=== PATIENT | male | born 1945 | race Caucasian/White ===

== ENCOUNTER → 2017-09-05 11:42 | Outpatient (CLI) | payer MEDICARE, SELFPAY ==
--- NOTE | 2017-09-05 | DI.CT.S_ITS ---
PROCEDURE: CT ANGIO CHEST INDICATIONS: PAROXYSMAL ATRIAL FIBRILLATION TECHNIQUE: After the administration of intravenous contrast, 3 mm thick sections acquired from the pulmonary apices to the posterior costophrenic angles. 3-dimensional maximum intensity projection (MIP) coronal reformats were then acquired parallel to the pulmonary veins. For radiation dose reduction, the following was used: automated exposure control, adjustment of mA and/or kV according to patient size. COMPARISON: [facility], CT, PE STUDY (CTA CHEST), 04/20/2015, 17:26. [facility], CT, CHEST/ABD/PEL WITH CONTRAST, 05/02/2015, 12:05. FINDINGS: Image quality: Excellent. Pulmonary veins: 4 pulmonary veins are identified however with very early branching of the left superior pulmonary vein (see image 35 series 6) versus left supernumerary pulmonary vein * Right superior pulmonary vein: 1.7 cm diameter, 1.2 cm from ostium to 1st order branch. * Right inferior pulmonary vein: 1.4 cm diameter, 1.0 cm from ostium to 1st order branch. * Left superior pulmonary vein: 1.8 cm diameter, 0.1 cm from ostium to 1st order branch. * Left inferior pulmonary vein: 1.4 cm diameter, 1.1 cm from ostium to 1st order branch. Lungs and pleura: Lungs are clear. No pleural effusions or pneumothorax. Central and peripheral airways are patent. Mediastinum: Heart size is normal, without pericardial effusion. No mediastinal or hilar adenopathy. Thoracic aorta and pulmonary arteries are normal in caliber and enhancement. Esophagus is normal in caliber, without hiatal hernia. Bones and chest wall: Bilateral shoulder degeneration with multiple loose bodies seen on the left. Abdomen: Hypodense hepatic lesions presumably small cysts although these are technically too small. 3 cm water attenuation presumed hepatic cysts as seen on image 140 series 4 involving the right lobe, with no interval change Sclerotic appearance of the T11 vertebral body in keeping with osseous metastatic disease. The degree of sclerosis is progressed since the prior CT dated 04/22/15. T1 sclerotic lesion also noted, as well as other sclerotic foci throughout the thoracic spine IMPRESSION: Pulmonary vein mapping as above. Widespread osseous metastases as before, with mild progressive interval sclerosis. Dictated by: Martin Padgett M.D. on 09/05/2017 at 14:59 Approved by: Martin Padgett M.D. on 09/05/2017 at 15:23
== END ==
PROVIDERS: Family Provider Family Medicine; PCP Family Medicine; Visit Provider Internal Medicine Cardiovascular Disease
DX: I48.0 Paroxysmal atrial fibrillation (principal); C79.51 Secondary malignant neoplasm of bone
CPT/HCPCS: 71275; Q9967

== ENCOUNTER → 2017-10-03 12:26 | Outpatient (CLI) | payer MEDICARE, SELFPAY ==
[2017-10-03 13:18] LABS: Add Manual Diff / Slide Review NO; Basophils Percent Auto 0.6 % (0-2); Eosinophils Percent Auto 1.4 % (2-4); Hematocrit 41.9 % (41-53); Hemoglobin 14.3 g/dL (13.5-17.5); Lymphocytes Percent Auto 10.7 % (25-40); Mean Corpuscular HGB Conc 34.1 % (30-36); Mean Corpuscular Hemoglobin 34.1 PG (26-34); Mean Corpuscular Volume 99.9 fL (80-100); Monocytes Percent Auto 5.5 % (3-14); Neutrophils Absolute Auto 5300 /uL (3000-5900); Neutrophils Percent Auto 81.8 % (50-75); Platelet Count 176 X10^3/uL (150-400); Red Cell Distribution Width 14.3 % (11.6-14.8); White Blood Cell Count 6.4 X10^3/uL (4.5-11.0)
[2017-10-03 13:59] LABS: Alanine Aminotransferase 23 IU/L (21-72); Albumin 4.2 g/dL (3.5-5.0); Albumin Globulin Ratio 1.4 (1.0-2.8); Alkaline Phosphatase 86 U/L (38-126); Aspartate Aminotransferase 20 IU/L (17-59); BUN Creatinine Ratio 28.6 (6-22); Bilirubin Total 1.3 mg/dL (0.2-1.3); Blood Urea Nitrogen 20 mg/dL (9-20); Calcium 9.4 mg/dL (8.4-10.2); Carbon Dioxide 30 mmol/L (22-32); Chloride 101 mmol/L (98-107); Estimated Glomerular Filt Rate > 60.0 mL/min (>60); Globulin 2.9 g/dL (1.7-4.1); Glucose 130 mg/dL (80-110); HEMOLYSIS 16 (0-50); Potassium 4.6 mmol/L (3.4-5.1); Sodium 143 mmol/L (137-145); Total Protein 7.1 g/dL (6.3-8.2)
[2017-10-03 14:29] LABS: Prostate Specific Antigen 0.808 ng/mL (0.10-4.00)
== END ==
PROVIDERS: Family Provider Family Medicine; PCP Family Medicine; Visit Provider Internal Medicine Hematology & Oncology
DX: C79.51 Secondary malignant neoplasm of bone (principal); C61 Malignant neoplasm of prostate
CPT/HCPCS: 36415; 80053; 84153; 85025

== ENCOUNTER → 2017-12-10 10:33 | Outpatient (CLI) | payer MEDICARE, SELFPAY | PROVIDERS: Family Provider Family Medicine; PCP Family Medicine; Visit Provider Nurse Practitioner Gerontology | DX: C61 Malignant neoplasm of prostate (principal); C79.51 Secondary malignant neoplasm of bone | CPT/HCPCS: 36415; 84153 ==

== ENCOUNTER → 2018-01-01 09:41 | Outpatient (CLI) | payer MEDICARE, SELFPAY ==
--- NOTE | 2018-01-01 09:42 | DI.NM.S_ITS ---
PROCEDURE: [place] BONE SCAN WHOLE BODY RADIOPHARMACEUTICAL: 21.3 mCi Tc-99m MDP IV. INDICATIONS: PROSTATE CANCER TECHNIQUE: Delayed whole-body scintigrams were obtained approximately 3-4 hours after intravenous injection of radiotracer. Anterior and posterior views were acquired from vertex to feet. COMPARISON: [place], [place], BONE SCAN WHOLE BODY, 07/11/2017, 13:12. [place], BONE SCAN WHOLE BODY, 04/26/2016, 11:26. [place], BONE SCAN WHOLE BODY, 05/02/2015, 11:41. FINDINGS: With reference to prior nuclear medicine bone scanning 05/02/15 and 04/26/16 and 07/11/17 there has been significant interval increased osseous metastatic disease involving axial and appendicular skeleton. Extensive cervical spine isotope deposition best seen anteriorly is present and also isotope uptake focally at the coracoid process area of the right shoulder is noted. Right-sided sternal isotope uptake is prominent near the sternal notch, and bilateral rib uptake has appreciably increased best seen on the posterior projection. Moderate to moderately severe thoracic and lesser degree of lumbosacral spine isotope uptake is present, and the left sacroiliac joint region shows prominent isotope deposition. Right iliac crest uptake is present, and a left proximal femoral uptake also can be easily seen in areas previously normal. IMPRESSION: Significant interval worsening of multifocal osteoblastic metastatic disease related to prostate carcinoma, involving both the axial and appendicular skeleton. Isotope uptake and excretion through the urinary tract remains present but diminished. Dictated by: Georges Wooten M.D. on 01/01/2018 at 14:09 Approved by: Georges Wooten M.D. on 01/01/2018 at 14:13
== END ==
PROVIDERS: Family Provider Family Medicine; PCP Family Medicine; Visit Provider Nurse Practitioner Gerontology
DX: C61 Malignant neoplasm of prostate (principal); C79.51 Secondary malignant neoplasm of bone
CPT/HCPCS: 78306; A9503

== ENCOUNTER → 2018-01-03 14:22 | Outpatient (CLI) | payer MEDICARE, SELFPAY | PROVIDERS: PCP Family Medicine; Visit Provider Physician Assistant | DX: Z92.29 Personal history of other drug therapy (principal) | CPT/HCPCS: 36415; 80299 ==

== ENCOUNTER 2018-01-08 13:30 | Oncology outpatient (ONC) | payer MEDICARE, SELFPAY ==
--- NOTE | 2017-10-10 08:53 | P.PNONC_ITS ---
Assessment and Plan (1) Malignant neoplasm of prostate metastatic to bone Onset Date: 02/25/17 Status: None 10/10/17 11:03 Leoncio presents for routine 3 month evaluation today. Reassuringly on exam he has no clinical signs of disease progression. However, PSA is slightly elevated at 0.808. This is the highest it has been since Casodex was discontinued. Patient remains on daily Zytiga, prednisone along with every 6 month Lupron and denosumab. Plan is to repeat PSA in 6 weeks. If PSA continues to climb we will repeat a bone scan. If PSA is stable we will continue with every 3 month evaluation with the above therapy. He is also followed by urology whom he sees every 3 months, has next appt december 2017. PSA 6 week order has been entered in computer - Time Spent with Patient 35 mins PN -Subjective Interval history: Branden is a 72-year-old male being seen in the clinic October 10, 2017. He carries a diagnosis of castrate resistant metastatic prostate cancer on first- line therapy with Lupron abiraterone started 01/26/2018. Was on casodex until April 2015. Patient has had a biochemical and clinical treatment response to date with his PSAs dropping from baseline of 1.040 (02/13/2017) down to 0.46 (06/20/2017). Patient also reporting resolution of presenting bilateral pelvic and upper thigh discomfort. Bone scan on 07/11/2017 showing stability of metastatic lesions of the cervical spine thoracic and lumbar spine. However as compared to bone scan dated 04/26/2016 new metastatic lesions along the manubrium, ribs, upper thoracic, and left sacroiliac joints as well as proximal left femur are noted. Patient's last 6 month Lupron, denosumab was administered on June 2017 by his urologist. Leoncio has no new complaints on exam today. No new musculoskeletal pain. No change in bladder habits. No change in appetite. Weight is stable. No change with activity tolerance, no shortness of breath. No headaches. He reports he feels his prostate cancer is well controlled Patient underwent cardiac ablation 2 weeks ago at [facility] for recurrent a fib with RVR. TIMELINE 1. Node positive, stage IV prostate cancer at the time of diagnosis, [place] 9. He had gradual progression of PSA despite Lupron with current castrate testosterone level most recently 20.7. In addition he has a positive bone scan and CT indicating early metastatic bone disease. He was treated originally with a radical prostatectomy and lymph node dissection 05/04/[address] 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 The patient ultimately underwent prostate radiation therapy. The explanation for the delay is included in my previous note, but he underwent radiation therapy November through January 2011, the last radiation 01/25/2011. He had a PSA presurgery of 6.1; 0.68 on 06/05/2010; 0.15 on 07/14/2010. He was thought to be at high risk for recurrence, and the decision was made to do radiation at that time. PSA values (See LAB) have risen from undetectable in 05/2014 to .149 in 11/2014 qndd subsequently risen very gradually to the value of .734 in 12/2016. He has been on Lupron since 2011 with the additoin of casodex since May 04, 2015. . However, he was subsequently found to have bone metastases. A bone scan showed radiotracer activity at C3, also T9, T12, and L3, and these correspond to sclerotic lesions consistent with metastatic disease. These lesions were present to some extent previously. The bone scan was done on 05/02 with a comparison to 03/27/2010, so more than 4 years ago. Past Medical History atrial fibrillation and has had a cardioversion. He was referred from here to Dr. Nicholas. Past Surgical History prostatectomy hernia when young and as adult 61 bilateral knee replacement Results - Imaging Additional studies: Procedures Application of splint (04/18/10) Arthrocentesis (04/18/10) Closed [endoscopic] biopsy of large intestine (04/12/10) Injection of anesthetic into peripheral nerve for analgesia (08/11/10) Radical prostatectomy (05/04/10) Regional lymph node excision (05/04/10) Total knee replacement (08/11/10) Home Medications and Allergies Home Medications Medication Instructions Recorded Confirmed Type abiraterone [Zytiga] 1,000 mg PO QDAY #120 tab 01/21/17 09/30/17 Rx [FIBER CAPS] 1 cap PO TID #0 07/16/17 09/30/17 History furosemide [Lasix] 20 mg PO QDAY #0 07/16/17 09/30/17 History potassium chloride 10 meq PO QDAY #30 cap 07/23/17 09/30/17 Rx warfarin 2.5 mg tablet 2.5 mg PO SEE INSTRUCTIONS #120 tab 09/02/17 09/30/17 Rx prednisone 5 mg PO BID #60 tab 09/22/17 09/30/17 Rx denosumab 60 mg/mL subcutaneous 60 mg SUBCUT [id number] #1 ml 10/01/17 Rx syringe leuprolide (6 month) 45 mg 45 mg IM [id number] #1 each 10/01/17 Rx intramuscular syringe kit losartan 25 mg tablet See Label Instructions PO QDAY 10/01/17 09/30/17 History amiodarone 400 mg PO AMCC 10/10/17 History Allergies Allergy/AdvReac Type Severity Reaction Status Date / Time No Known Drug Allergies Allergy Unknown Unverified 09/30/17 11:25 [NO KNOWN DRUG ALLERGIES] Exam Narrative: well appearing - Constitutional positive no acute distress, positive average body habitus - Routine HEENT Exam Head: Present: normocephalic Eye: Present: EOMI, PERRL, normal accommodation, conjunctivae pink. Absent: conjunctival icterus, scleral injection ENT: Present: mucous membranes moist - Routine Neck Exam Present: supple. Absent: JVD, lymphadenopathy - Routine Chest/Breast/Axilla Exam Axillae: Absent: lymphadenopathy, mass, tenderness - Routine Respiratory Exam Present: Clear to auscultation bilaterally - Routine Cardiovascular Exam Present: RRR, S1, S2. Absent: murmur, gallop, rubs - Routine Abdominal Exam Present: soft, normoactive bowel sounds. Absent: tenderness, distended, organomegaly - Routine Extremities Exam Absent: edema, calf tenderness - Routine Skin Exam Present: intact, normal turgor. Absent: petechiae - Routine Neurological Exam Present: oriented X3
[2017-10-10 10:24] VITALS: BP 114/71; PULSE 73; RESP 18; O2SAT 97
--- NOTE | 2018-01-01 15:48 | PC.NURSE ---
Addendum entered by Annika Parikh R.N. 01/02/18 09:53: Pt reschd for 01/[address] Morgan per MD request. Pt called and advised. Original Note: Triage note: results from bone scan placed on my desk for review showing disease progression. Pt is not scheduled until Feb 03. Results placed in Dr Morgan's box with a note asking if he would be willing to see pt sooner. Awaiting response.
[2018-01-08 13:26] LABS: Add Manual Diff / Slide Review NO; Basophils Percent Auto 0.9 % (0-2); Eosinophils Percent Auto 0.6 % (2-4); Hematocrit 43.2 % (41-53); Hemoglobin 14.8 g/dL (13.5-17.5); Lymphocytes Percent Auto 12.1 % (25-40); Mean Corpuscular HGB Conc 34.1 % (30-36); Mean Corpuscular Hemoglobin 33.8 PG (26-34); Mean Corpuscular Volume 99.1 fL (80-100); Monocytes Percent Auto 6.6 % (3-14); Neutrophils Absolute Auto 6500 /uL (3000-5900); Neutrophils Percent Auto 79.8 % (50-75); Platelet Count 220 X10^3/uL (150-400); Red Blood Cell Count 4.36 X10^6/uL (4.5-5.9); Red Cell Distribution Width 14.2 % (11.6-14.8); White Blood Cell Count 8.1 X10^3/uL (4.5-11.0)
[2018-01-08 13:41] LABS: Alanine Aminotransferase 22 IU/L (21-72); Albumin 4.3 g/dL (3.5-5.0); Albumin Globulin Ratio 1.5 (1.0-2.8); Alkaline Phosphatase 116 U/L (38-126); Aspartate Aminotransferase 19 IU/L (17-59); BUN Creatinine Ratio 33.8 (6-22); Bilirubin Total 1.1 mg/dL (0.2-1.3); Blood Urea Nitrogen 27 mg/dL (9-20); Calcium 9.3 mg/dL (8.4-10.2); Carbon Dioxide 30 mmol/L (22-32); Chloride 101 mmol/L (98-107); Estimated Glomerular Filt Rate > 60.0 mL/min (>60); Globulin 2.9 g/dL (1.7-4.1); Glucose 115 mg/dL (80-110); HEMOLYSIS < 15 (0-50); Potassium 4.7 mmol/L (3.4-5.1); Sodium 142 mmol/L (137-145); Total Protein 7.2 g/dL (6.3-8.2)
[2018-01-08 13:42] VITALS: BP 106/80; PULSE 139; RESP 17; TEMP 36.4; O2SAT 100
[2018-01-08 14:14] LABS: Testosterone 19.6 ng/dL (71.8-623)
--- NOTE | 2018-01-08 15:44 | ONC.PN ---
PN -Subjective Interval history: Diagnosis: Metastatic prostate cancer. Previous treatment: 1. Prostatectomy in April 2010 with a [employer] 9 T3bN1 prostate cancer. 2. Radiation therapy to the prostate bed finishing in January 2011. 3. Lupron beginning in 2011. 4. Casodex plus Lupron from April 2015 until late in 2016. 5. Zytiga and prednisone beginning in April 2017. Interval history: The patient is a 72-year-old male being seen in the clinic October 10, 2017. He is seen today for follow-up of prostate cancer. He has been on Zytiga and prednisone. He has also been getting Lupron and Xgeva from his urologist. He has been tolerating the Zytiga without any significant difficulty although he does have some mild to moderate fatigue. He has not noted any edema. He denies any fevers or chills. He has occasional hot flashes. He has had some pain in his back this. That pain was more severe when he started the Zytiga back in April. It largely subsided. I have but recently, it seems to have increased a little bit although it still intermittent and fairly mild. He is not taking any medication for it. He denies any new urinary complaints. No shortness of breath or cough. His appetite and weight have been stable. Patient underwent cardiac ablation for recurrent a fib with RVR. He thinks that this may be contributing to his fatigue. His medications include Zytiga and prednisone Lasix losartan potassium and warfarin. Social history: He is . He is retired from the refinery. He does not smoke. Has occasional alcohol use. He and his are planning on moving to [facility] in about 3 weeks ago to be closer to his daughter. TIMELINE 1. Node positive, stage IV prostate cancer at the time of diagnosis, [employer] 9. He had gradual progression of PSA despite Lupron with current castrate testosterone level most recently 20.7. In addition he has a positive bone scan and CT indicating early metastatic bone disease. He was treated originally with a radical prostatectomy and lymph node dissection 05/04/[address] 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 The patient ultimately underwent prostate radiation therapy. The explanation for the delay is included in my previous note, but he underwent radiation therapy November through January 2011, the last radiation 01/25/2011. He had a PSA presurgery of 6.1; 0.68 on 06/05/2010; 0.15 on 07/14/2010. He was thought to be at high risk for recurrence, and the decision was made to do radiation at that time. PSA values (See LAB) have risen from undetectable in 05/2014 to .149 in 11/2014 qndd subsequently risen very gradually to the value of .734 in 12/2016. He has been on Lupron since 2011 with the additoin of casodex since May 04, 2015. . However, he was subsequently found to have bone metastases. A bone scan showed radiotracer activity at C3, also T9, T12, and L3, and these correspond to sclerotic lesions consistent with metastatic disease. These lesions were present to some extent previously. The bone scan was done on 05/02/2015 with a comparison to 03/27/2010, so more than 4 years ago. Past Medical History atrial fibrillation and has had a cardioversion. He was referred from here to Dr. Nicholas. Past Surgical History prostatectomy hernia when young and as adult 61 bilateral knee replacement Home Medications and Allergies Home Medications Medication Instructions Recorded Confirmed Type abiraterone [Zytiga] 1,000 mg PO QDAY #120 tab 01/21/17 01/08/18 Rx [FIBER CAPS] 1 cap PO TID #0 07/16/17 01/08/18 History furosemide [Lasix] 20 mg PO QDAY #0 07/16/17 01/08/18 History potassium chloride 10 meq PO QDAY #30 cap 07/23/17 01/08/18 Rx warfarin 2.5 mg tablet 2.5 mg PO SEE INSTRUCTIONS #120 tab 09/02/17 01/08/18 Rx prednisone 5 mg PO BID #60 tab 09/22/17 01/08/18 Rx denosumab 60 mg/mL subcutaneous 60 mg SUBCUT [id number] #1 ml 10/01/17 01/08/18 Rx syringe leuprolide (6 month) 45 mg 45 mg IM [id number] #1 each 10/01/17 01/08/18 Rx intramuscular syringe kit losartan 25 mg tablet See Label Instructions PO QDAY 10/01/17 01/08/18 History cyclobenzaprine 10 mg tablet 10 mg PO TID #30 tab 12/19/17 01/08/18 Rx enzalutamide [Xtandi] 160 mg PO DAILY 30 Days #120 cap 01/08/18 Rx Allergies Allergy/AdvReac Type Severity Reaction Status Date / Time No Known Drug Allergies Allergy Unknown Verified 12/18/17 11:34 [NO KNOWN DRUG ALLERGIES] Exam Vital signs: Last Vital Signs Temp 97.6 F 01/08/18 13:42 Pulse 139 H 01/08/18 13:42 Resp 17 01/08/18 13:42 BP 106/80 01/08/18 13:42 Pulse Ox 100 01/08/18 13:42 - Constitutional positive no acute distress, positive average body habitus - Routine HEENT Exam Head: Present: normocephalic, atraumatic Eye: Present: EOMI, PERRL. Absent: conjunctival icterus, scleral injection ENT: Present: mucous membranes moist, oropharynx clear - Routine Neck Exam Present: supple. Absent: lymphadenopathy, thyromegaly - Routine Chest/Breast/Axilla Exam Chest wall exam standard: Absent: tenderness - Routine Respiratory Exam Present: Clear to auscultation bilaterally. Absent: rales, wheezes - Routine Cardiovascular Exam Absent: murmur, irregularly irregular - Routine Abdominal Exam Present: soft, normoactive bowel sounds. Absent: tenderness, organomegaly, mass - Routine Extremities Exam Absent: cyanosis, clubbing, edema - Routine Back/Spine Exam Back/Spine: Absent: paraspinal tenderness, vertebral tenderness - Routine Skin Exam Present: intact. Absent: petechiae, rash - Routine Neurological Exam Present: alert, oriented X3 - Routine Psychiatric Exam Present: normal affect, normal thought process Results - Labs Laboratory Last Values WBC 8.1 X10^3/uL (4.5-11.0) 01/08/18 13:16 RBC 4.36 X10^6/uL (4.5-5.9) L 01/08/18 13:16 Hgb 14.8 g/dL (13.5-17.5) 01/08/18 13:16 Hct 43.2 % (41-53) 01/08/18 13:16 MCV 99.1 fL (80-100) 01/08/18 13:16 MCH 33.8 PG (26-34) 01/08/18 13:16 MCHC 34.1 % (30-36) 01/08/18 13:16 RDW 14.2 % (11.6-14.8) 01/08/18 13:16 Plt Count 220 X10^3/uL (150-400) 01/08/18 13:16 Neut % (Auto) 79.8 % (50-75) H 01/08/18 13:16 Lymph % (Auto) 12.1 % (25-40) L 01/08/18 13:16 [place] % (Auto) 6.6 % (3-14) 01/08/18 13:16 Eos % (Auto) 0.6 % (2-4) L 01/08/18 13:16 Baso % (Auto) 0.9 % (0-2) 01/08/18 13:16 Neut # (Auto) 6500 /uL (8684-7954) H 01/08/18 13:16 Sodium 142 mmol/L (137-145) 01/08/18 13:16 Potassium 4.7 mmol/L (3.4-5.1) 01/08/18 13:16 Chloride 101 mmol/L (98-107) 01/08/18 13:16 Carbon Dioxide 30 mmol/L (22-32) 01/08/18 13:16 BUN 27 mg/dL (9-20) H 01/08/18 13:16 Creatinine 0.80 mg/dL (0.66-1.25) 01/08/18 13:16 Estimated GFR > 60.0 mL/min (>60) 01/08/18 13:16 BUN/Creatinine Ratio 33.8 (6-22) H 01/08/18 13:16 Glucose 115 mg/dL (80-110) H 01/08/18 13:16 Calcium 9.3 mg/dL (8.4-10.2) 01/08/18 13:16 Total Bilirubin 1.1 mg/dL (0.2-1.3) 01/08/18 13:16 AST 19 IU/L (17-59) 01/08/18 13:16 ALT 22 IU/L (21-72) 01/08/18 13:16 Alkaline Phosphatase 116 U/L (38-126) 01/08/18 13:16 Total Protein 7.2 g/dL (6.3-8.2) 01/08/18 13:16 Albumin 4.3 g/dL (3.5-5.0) 01/08/18 13:16 Globulin 2.9 g/dL (1.7-4.1) 01/08/18 13:16 Albumin/Globulin Ratio 1.5 (1.0-2.8) 01/08/18 13:16 Prostate Specific Ag 1.470 ng/mL (0.10-4.00) 01/08/18 13:16 Testosterone Level 19.6 ng/dL (71.8-623) L 01/08/18 13:16 - Imaging Additional studies: Procedures Application of splint (04/18/10) Arthrocentesis (04/18/10) Injection of anesthetic into peripheral nerve for analgesia (08/11/10) Radical prostatectomy (05/04/10) Regional lymph node excision (05/04/10) Total knee replacement (08/11/10) Assessment and Plan (1) Malignant neoplasm of prostate metastatic to bone Onset Date: 02/25/17 Problem details: This 72-year-old man with metastatic prostate cancer and a high [employer] score. Clinically he has been stable on Zytiga and prednisone although his PSA has been increasing a little bit. He did have a bone scan done that showed evidence of a worsening bony metastases throughout the spine and ribs. Despite his relatively low PSA, I think he really is progressing. We discussed additional treatment options today. I think the next standard approach would be changing his Zytiga and prednisone to Xtandi. We also briefly discussed the possibility of Provenge, Xofigo or chemotherapy with Taxotere. He would like to change to Xtandi and I did give him a prescription today. I have recommended that he follow up with an oncologist in [facility] as soon as he establishes down there. I have not scheduled a follow-up appointment for him here what would be happy see him again in the future should the need arise. Current visit: No Status: None
--- NOTE | 2018-01-08 15:50 | P.PNONC_ITS ---
PN -Subjective Interval history: Diagnosis: Metastatic prostate cancer. Previous treatment: 1. Prostatectomy in April 2010 with a Tioga 9 T3bN1 prostate cancer. 2. Radiation therapy to the prostate bed finishing in January 2011. 3. Lupron beginning in 2011. 4. Casodex plus Lupron from April 2015 until late in 2016. 5. Zytiga and prednisone beginning in April 2017. Interval history: The patient is a 72-year-old male being seen in the clinic October 10, 2017. He is seen today for follow-up of prostate cancer. He has been on Zytiga and prednisone. He has also been getting Lupron and Xgeva from his urologist. He has been tolerating the Zytiga without any significant difficulty although he does have some mild to moderate fatigue. He has not noted any edema. He denies any fevers or chills. He has occasional hot flashes. He has had some pain in his back this. That pain was more severe when he started the Zytiga back in April. It largely subsided. I have but recently, it seems to have increased a little bit although it still intermittent and fairly mild. He is not taking any medication for it. He denies any new urinary complaints. No shortness of breath or cough. His appetite and weight have been stable. Patient underwent cardiac ablation for recurrent a fib with RVR. He thinks that this may be contributing to his fatigue. His medications include Zytiga and prednisone Lasix losartan potassium and warfarin. Social history: He is . He is retired from the refinery. He does not smoke. Has occasional alcohol use. He and his are planning on moving to [facility] in about 3 weeks ago to be closer to his daughter. TIMELINE 1. Node positive, stage IV prostate cancer at the time of diagnosis, Tioga 9. He had gradual progression of PSA despite Lupron with current castrate testosterone level most recently 20.7. In addition he has a positive bone scan and CT indicating early metastatic bone disease. He was treated originally with a radical prostatectomy and lymph node dissection 05/04/[address] 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 The patient ultimately underwent prostate radiation therapy. The explanation for the delay is included in my previous note, but he underwent radiation therapy November through January 2011, the last radiation 01/25/2011. He had a PSA presurgery of 6.1; 0.68 on 06/05/2010; 0.15 on 07/14/2010. He was thought to be at high risk for recurrence, and the decision was made to do radiation at that time. PSA values (See LAB) have risen from undetectable in 05/2014 to .149 in 11/2014 qndd subsequently risen very gradually to the value of .734 in 12/2016. He has been on Lupron since 2011 with the additoin of casodex since May 04, 2015. . However, he was subsequently found to have bone metastases. A bone scan showed radiotracer activity at C3, also T9, T12, and L3, and these correspond to sclerotic lesions consistent with metastatic disease. These lesions were present to some extent previously. The bone scan was done on 05/02 with a comparison to 03/27/2010, so more than 4 years ago. Past Medical History atrial fibrillation and has had a cardioversion. He was referred from here to Dr. Nicholas. Past Surgical History prostatectomy hernia when young and as adult 61 bilateral knee replacement Home Medications and Allergies Home Medications Medication Instructions Recorded Confirmed Type abiraterone [Zytiga] 1,000 mg PO QDAY #120 tab 01/21/17 01/08/18 Rx [FIBER CAPS] 1 cap PO TID #0 07/16/17 01/08/18 History furosemide [Lasix] 20 mg PO QDAY #0 07/16/17 01/08/18 History potassium chloride 10 meq PO QDAY #30 cap 07/23/17 01/08/18 Rx warfarin 2.5 mg tablet 2.5 mg PO SEE INSTRUCTIONS #120 tab 09/02/17 01/08/18 Rx prednisone 5 mg PO BID #60 tab 09/22/17 01/08/18 Rx denosumab 60 mg/mL subcutaneous 60 mg SUBCUT [id number] #1 ml 10/01/17 01/08/18 Rx syringe leuprolide (6 month) 45 mg 45 mg IM [id number] #1 each 10/01/17 01/08/18 Rx intramuscular syringe kit losartan 25 mg tablet See Label Instructions PO QDAY 10/01/17 01/08/18 History cyclobenzaprine 10 mg tablet 10 mg PO TID #30 tab 12/19/17 01/08/18 Rx enzalutamide [Xtandi] 160 mg PO DAILY 30 Days #120 cap 01/08/18 Rx Allergies Allergy/AdvReac Type Severity Reaction Status Date / Time No Known Drug Allergies Allergy Unknown Verified 12/18/17 11:34 [NO KNOWN DRUG ALLERGIES] Exam Vital signs: Last Vital Signs Temp 97.6 F 01/08/18 13:42 Pulse 139 H 01/08/18 13:42 Resp 17 01/08/18 13:42 BP 106/80 01/08/18 13:42 Pulse Ox 100 01/08/18 13:42 - Constitutional positive no acute distress, positive average body habitus - Routine HEENT Exam Head: Present: normocephalic, atraumatic Eye: Present: EOMI, PERRL. Absent: conjunctival icterus, scleral injection ENT: Present: mucous membranes moist, oropharynx clear - Routine Neck Exam Present: supple. Absent: lymphadenopathy, thyromegaly - Routine Chest/Breast/Axilla Exam Chest wall exam standard: Absent: tenderness - Routine Respiratory Exam Present: Clear to auscultation bilaterally. Absent: rales, wheezes - Routine Cardiovascular Exam Absent: murmur, irregularly irregular - Routine Abdominal Exam Present: soft, normoactive bowel sounds. Absent: tenderness, organomegaly, mass - Routine Extremities Exam Absent: cyanosis, clubbing, edema - Routine Back/Spine Exam Back/Spine: Absent: paraspinal tenderness, vertebral tenderness - Routine Skin Exam Present: intact. Absent: petechiae, rash - Routine Neurological Exam Present: alert, oriented X3 - Routine Psychiatric Exam Present: normal affect, normal thought process Results - Labs Laboratory Last Values WBC 8.1 X10^3/uL (4.5-11.0) 01/08/18 13:16 RBC 4.36 X10^6/uL (4.5-5.9) L 01/08/18 13:16 Hgb 14.8 g/dL (13.5-17.5) 01/08/18 13:16 Hct 43.2 % (41-53) 01/08/18 13:16 MCV 99.1 fL (80-100) 01/08/18 13:16 MCH 33.8 PG (26-34) 01/08/18 13:16 MCHC 34.1 % (30-36) 01/08/18 13:16 RDW 14.2 % (11.6-14.8) 01/08/18 13:16 Plt Count 220 X10^3/uL (150-400) 01/08/18 13:16 Neut % (Auto) 79.8 % (50-75) H 01/08/18 13:16 Lymph % (Auto) 12.1 % (25-40) L 01/08/18 13:16 Waldo % (Auto) 6.6 % (3-14) 01/08/18 13:16 Eos % (Auto) 0.6 % (2-4) L 01/08/18 13:16 Baso % (Auto) 0.9 % (0-2) 01/08/18 13:16 Neut # (Auto) 6500 /uL (8357-3127) H 01/08/18 13:16 Sodium 142 mmol/L (137-145) 01/08/18 13:16 Potassium 4.7 mmol/L (3.4-5.1) 01/08/18 13:16 Chloride 101 mmol/L (98-107) 01/08/18 13:16 Carbon Dioxide 30 mmol/L (22-32) 01/08/18 13:16 BUN 27 mg/dL (9-20) H 01/08/18 13:16 Creatinine 0.80 mg/dL (0.66-1.25) 01/08/18 13:16 Estimated GFR > 60.0 mL/min (>60) 01/08/18 13:16 BUN/Creatinine Ratio 33.8 (6-22) H 01/08/18 13:16 Glucose 115 mg/dL (80-110) H 01/08/18 13:16 Calcium 9.3 mg/dL (8.4-10.2) 01/08/18 13:16 Total Bilirubin 1.1 mg/dL (0.2-1.3) 01/08/18 13:16 AST 19 IU/L (17-59) 01/08/18 13:16 ALT 22 IU/L (21-72) 01/08/18 13:16 Alkaline Phosphatase 116 U/L (38-126) 01/08/18 13:16 Total Protein 7.2 g/dL (6.3-8.2) 01/08/18 13:16 Albumin 4.3 g/dL (3.5-5.0) 01/08/18 13:16 Globulin 2.9 g/dL (1.7-4.1) 01/08/18 13:16 Albumin/Globulin Ratio 1.5 (1.0-2.8) 01/08/18 13:16 Prostate Specific Ag 1.470 ng/mL (0.10-4.00) 01/08/18 13:16 Testosterone Level 19.6 ng/dL (71.8-623) L 01/08/18 13:16 - Imaging Additional studies: Procedures Application of splint (04/18/10) Arthrocentesis (04/18/10) Injection of anesthetic into peripheral nerve for analgesia (08/11/10) Radical prostatectomy (05/04/10) Regional lymph node excision (05/04/10) Total knee replacement (08/11/10) Assessment and Plan (1) Malignant neoplasm of prostate metastatic to bone Onset Date: 02/25/17 Problem details: This 72-year-old man with metastatic prostate cancer and a high Hanny score. Clinically he has been stable on Zytiga and prednisone although his PSA has been increasing a little bit. He did have a bone scan done that showed evidence of a worsening bony metastases throughout the spine and ribs. Despite his relatively low PSA, I think he really is progressing. We discussed additional treatment options today. I think the next standard approach would be changing his Zytiga and prednisone to Xtandi. We also briefly discussed the possibility of Provenge, Xofigo or chemotherapy with Taxotere. He would like to change to Xtandi and I did give him a prescription today. I have recommended that he follow up with an oncologist in [facility] as soon as he establishes down there. I have not scheduled a follow-up appointment for him here what would be happy see him again in the future should the need arise. Current visit: No Status: None
--- NOTE | 2018-01-09 09:37 | ONC.SCHED ---
Records Request-I put a records request filled out by the patient in the medical records box on the wall at 9:41 on 01/09. This was found in the chart while I was investigating his follow ups.
== END 2018-01-20 13:20 ==
PROVIDERS: Family Provider Family Medicine; PCP Family Medicine; Visit Provider Nurse Practitioner Gerontology
DX: C61 Malignant neoplasm of prostate (principal); C79.51 Secondary malignant neoplasm of bone
CPT/HCPCS: 36415; 80053; 84153; 84403; 85025; 99214; 99215